=== PATIENT | female | born 1995 | race Caucasian/White ===

== ENCOUNTER 2017-09-03 18:29 | Inpatient (IN) | payer BC, MEDICAID ==
[~2017-09-03] VITALS: Ht 167.6 cm; Wt 114.1 kg
[2017-09-03] MEDS ORDERED: MAGNESIUM SULF. PMX 20GM/500ML 500 ML IV ONE (18:39)
[2017-09-03] MEDS ORDERED: LACTATED RINGERS 1,000 ML IV PRN (19:06)
[2017-09-03] MEDS ORDERED: PLEASE ENTER ALLERGIES MC SCH ×2 (19:30)
[2017-09-03] MEDS: PLEASE ENTER HEIGHT AND WEIGHT MC SCH (19:30)
[2017-09-03 19:33] LABS: HEMATOCRIT 35.5 % (34.6-47.8); HEMOGLOBIN 11.9 g/dL (11.7-16.4); WHITE BLOOD COUNT 15.4 x10^3/uL (3.4-10)
[2017-09-03 19:43] LABS: ASPARTATE AMINO TRANSFERASE 12 U/L (15-37); BLOOD UREA NITROGEN 22 mg/dL (7-18)
[2017-09-03 19:46] LABS: LACTATE DEHYDROGENASE 140 U/L (84-246)
[2017-09-03] MEDS ORDERED: ACETAMINOPHEN 325 MG TABLET ONE (21:37)
[2017-09-03] MEDS ORDERED: ACETAMINOPHEN 500 MG TABLET PO ONE (22:00)
[2017-09-03] MEDS ORDERED: METOCLOPRAMIDE 5 MG/ML, 2ML ONE (22:29)
[2017-09-03] MEDS ORDERED: SODIUM CITRATE/CITRIC ACID 30 ML UDC ONE (22:29)
[2017-09-03] MEDS ORDERED: NEWBORN KIT ONE (22:29)
[2017-09-03] MEDS ORDERED: OXYTOCIN 30U/ 0.9% NaCL 500ML 500 ML ONE (22:29)
[2017-09-04] MEDS: PLEASE ENTER HEIGHT AND WEIGHT MC SCH (03:30)
[2017-09-04] MEDS ORDERED: MAGNESIUM SULF. PMX 20GM/500ML 500 ML IV ONE ×2 (04:36→15:10)
[2017-09-04] MEDS: MAGNESIUM SULF. PMX 20GM/500ML 500 ML IV SCH ×2 (04:40→15:14)
[2017-09-04 05:04] LABS: HEMATOCRIT 33.6 % (34.6-47.8); HEMOGLOBIN 11.3 g/dL (11.7-16.4); WHITE BLOOD COUNT 15.2 x10^3/uL (3.4-10)
[2017-09-04 05:14] LABS: BLOOD UREA NITROGEN 18 mg/dL (7-18)
[2017-09-04 05:17] LABS: ASPARTATE AMINO TRANSFERASE 16 U/L (15-37)
[2017-09-04] MEDS: D5%-LACTATED RINGERS 1,000 ML IV SCH (07:30)
[2017-09-04] MEDS ORDERED: ACETAMINOPHEN 325 MG TABLET ONE ×2 (09:21)
[2017-09-04] MEDS: ACETAMINOPHEN 325 MG TABLET PO PRN (09:24)
[2017-09-04] MEDS ORDERED: OXYTOCIN 30U/ 0.9% NaCL 500ML 500 ML ONE (11:08)
[2017-09-04] MEDS ORDERED: NEWBORN KIT ONE (11:16)
[2017-09-04] MEDS ORDERED: ONDANSETRON 2MG/ML, 2ML ONE ×2 (11:25→12:38)
[2017-09-04] MEDS ORDERED: OXYTOCIN 10 UNITS/ML, 1ML ONE ×2 (11:25→12:38)
[2017-09-04] MEDS ORDERED: PHENYLEPHRINE 10 MG/ML ONE (11:25)
[2017-09-04] MEDS ORDERED: EPHEDRINE 50 MG/ML, 1ML ONE (11:25)
[2017-09-04] MEDS ORDERED: CEFAZOLIN 1,000 MG ONE ×3 (11:25→13:18)
[2017-09-04] MEDS ORDERED: KETOROLAC 30 MG/1 ML ONE (11:25)
[2017-09-04] MEDS ORDERED: DEXAMETHASONE 4 MG/ML, 1ML ONE ×2 (11:25→12:38)
[2017-09-04] MEDS ORDERED: FENTANYL PF 100 MCG/2ML ONE (11:25)
[2017-09-04] MEDS ORDERED: METOCLOPRAMIDE 5 MG/ML, 2ML IVPush ONE (11:30)
[2017-09-04] MEDS ORDERED: ONDANSETRON 2MG/ML, 2ML IVPush PRN (11:30)
[2017-09-04] MEDS ORDERED: EPHEDRINE 50 MG/ML, 1ML IVPush PRN (11:30)
[2017-09-04] MEDS ORDERED: MIDAZOLAM 1 MG/ML, 2ML IV PRN (11:30)
[2017-09-04] MEDS ORDERED: MEPERIDINE/PF 25MG/0.5ML IVPush PRN (11:30)
[2017-09-04] MEDS ORDERED: HYDROcodone/APAP 7.5-325MG/15ML UDC PO PRN (11:30)
[2017-09-04] MEDS ORDERED: HYDROmorphone 1 MG/ML, 1ML IV PRN (11:30)
[2017-09-04] MEDS ORDERED: OXYcodone 5 MG/5 ML ORAL.SOL UDC PO PRN (11:30)
[2017-09-04] MEDS ORDERED: hydrALAzine 20 MG/ML, 1ML IV PRN (11:30)
[2017-09-04] MEDS ORDERED: LABETALOL 5MG/ML, 20ML IV PRN (11:30)
[2017-09-04] MEDS ORDERED: PROMETHAZINE 25 MG/ML, 1ML IV PRN (11:30)
[2017-09-04] MEDS ORDERED: SODIUM CITRATE/CITRIC ACID 30 ML UDC PO ONE (11:30)
[2017-09-04] MEDS ORDERED: ALBUTEROL/IPRATROPIUM 2.5MG/0.5MG, 3 ML NPPB PRN (11:30)
[2017-09-04] MEDS ORDERED: FENTANYL PF 100 MCG/2ML IV PRN (11:30)
[2017-09-04] MEDS ORDERED: MAGNESIUM SULFATE PMX 2 GM/50 ML ONE (12:38)
[2017-09-04] MEDS ORDERED: METOCLOPRAMIDE 5 MG/ML, 2ML ONE (12:38)
[2017-09-04] MEDS ORDERED: SODIUM CITRATE/CITRIC ACID 30 ML UDC ONE (12:38)
[2017-09-04] MEDS ORDERED: MAGNESIUM SULF. PMX 20GM/500ML 500 ML IV PRN (13:56)
[2017-09-04] MEDS ORDERED: LACTATED RINGERS 1,000 ML IV PRN ×2 (13:56→19:06)
[2017-09-04] MEDS: LACTATED RINGERS 1,000 ML IV SCH ×4 (13:56→23:56)
[2017-09-04] MEDS ORDERED: SIMETHICONE 80 MG CHEW TAB PO PRN (14:00)
[2017-09-04] MEDS ORDERED: ONDANSETRON 2MG/ML, 2ML IV PRN (14:00)
[2017-09-04] MEDS ORDERED: MISOPROSTOL 200 MCG TABLET PR PRN (14:00)
[2017-09-04] MEDS ORDERED: BISACODYL 10 MG SUPP PR PRN (14:00)
[2017-09-04] MEDS ORDERED: ACETAMINOPHEN 325 MG TABLET PO PRN (14:00)
[2017-09-04] MEDS ORDERED: DIPH,PERTUSS(ACELL),TET VAC/PF NC IM-VACC PRN (14:00)
[2017-09-04] MEDS ORDERED: MEPERIDINE/PF 100 MG/ML ONE (14:41)
[2017-09-04] MEDS ORDERED: OXYcodone 5 MG/5 ML ORAL.SOL UDC ONE (15:10)
[2017-09-04] MEDS: OXYTOCIN 30U/ 0.9% NaCL 500ML 500 ML IV SCH ×2 (15:16→23:56)
[2017-09-04] MEDS ORDERED: HYDROmorphone 1 MG/ML, 1ML ONE (17:26)
[2017-09-04] MEDS ORDERED: OXYcodone/APAP 5/325MG TABLET ONE ×2 (18:09→23:32)
[2017-09-04] MEDS: OXYcodone/APAP 5/325MG TABLET PO PRN ×2 (18:14→23:34)
[2017-09-04 19:25] VITALS: BP 134/82
[2017-09-04] MEDS ORDERED: OXYcodone IR 5MG TABLET ONE (20:05)
[2017-09-04] MEDS: OXYcodone IR 5MG TABLET PO PRN (20:08)
[2017-09-05] MEDS ORDERED: OXYcodone IR 5MG TABLET ONE ×3 (00:18→11:22)
[2017-09-05] MEDS: OXYcodone IR 5MG TABLET PO PRN ×5 (00:21→20:06)
[2017-09-05] MEDS: MAGNESIUM SULF. PMX 20GM/500ML 500 ML IV SCH ×3 (01:06→11:06)
[2017-09-05] MEDS ORDERED: MAGNESIUM SULF. PMX 20GM/500ML 500 ML IV ONE (01:34)
[2017-09-05 02:19] LABS: HEMATOCRIT 29.7 % (34.6-47.8); HEMOGLOBIN 9.9 g/dL (11.7-16.4); WHITE BLOOD COUNT 15.9 x10^3/uL (3.4-10)
[2017-09-05 02:34] LABS: ASPARTATE AMINO TRANSFERASE 16 U/L (15-37); BLOOD UREA NITROGEN 14 mg/dL (7-18)
[2017-09-05] MEDS: D5%-LACTATED RINGERS 1,000 ML IV SCH (03:30)
[2017-09-05] MEDS: LACTATED RINGERS 1,000 ML IV SCH ×3 (05:56→13:56)
[2017-09-05] MEDS ORDERED: OXYcodone/APAP 5/325MG TABLET ONE (06:14)
[2017-09-05] MEDS: OXYcodone/APAP 5/325MG TABLET PO PRN (06:16)
[2017-09-05] MEDS ORDERED: OXYcodone 5 MG/5 ML ORAL.SOL UDC ONE (07:23)
[2017-09-05] MEDS: OXYTOCIN 30U/ 0.9% NaCL 500ML 500 ML IV SCH (09:56)
[2017-09-05 10:00] VITALS: BP 128/84
[2017-09-05] MEDS ORDERED: DOCUSATE 100 MG CAPSULE ONE (12:08)
[2017-09-05] MEDS ORDERED: PRENATAL VIT/IRON/FA 1 EACH TABLET ONE (12:08)
[2017-09-05] MEDS: DOCUSATE 100 MG CAPSULE PO PRN ×2 (12:09→20:06)
[2017-09-05] MEDS: PRENATAL VIT/IRON/FA 1 EACH TABLET PO SCH (12:10)
[2017-09-05] MEDS ORDERED: ACETAMINOPHEN 325 MG TABLET ONE (13:12)
[2017-09-05] MEDS: ACETAMINOPHEN 325 MG TABLET PO PRN ×3 (13:16→22:11)
[2017-09-05 15:44] VITALS: BP 142/92
[2017-09-05 19:15] VITALS: BP 150/98
[2017-09-06 00:11] VITALS: BP 142/86
[2017-09-06] MEDS: OXYcodone IR 5MG TABLET PO PRN ×5 (01:49→21:35)
[2017-09-06 04:15] VITALS: BP 142/94
[2017-09-06] MEDS: ACETAMINOPHEN 325 MG TABLET PO PRN ×3 (06:53→21:35)
[2017-09-06 07:18] VITALS: BP 150/94
[2017-09-06] MEDS: PRENATAL VIT/IRON/FA 1 EACH TABLET PO SCH (07:29)
[2017-09-06] MEDS: DOCUSATE 100 MG CAPSULE PO PRN ×2 (07:29→21:39)
[2017-09-06] MEDS ORDERED: niFEDipine ER 60 MG TABLET.ER PO SCH (16:30)
[2017-09-06 20:00] VITALS: BP 135/92
[2017-09-06] MEDS ORDERED: DIPHENHYDRAMINE 50 MG CAPSULE PO ONE (22:00)
[2017-09-07] VITALS (7 sets, daily range): BP systolic 129–151; BP diastolic 81–102
[2017-09-07] MEDS: OXYcodone IR 5MG TABLET PO PRN ×2 (03:00→09:10)
[2017-09-07] MEDS: PRENATAL VIT/IRON/FA 1 EACH TABLET PO SCH (07:20)
[2017-09-07] MEDS: LABETALOL 200 MG TABLET PO SCH ×2 (07:20→17:32)
[2017-09-07] MEDS: DOCUSATE 100 MG CAPSULE PO PRN ×2 (07:21→21:47)
[2017-09-07] MEDS: OXYcodone/APAP 5/325MG TABLET PO PRN ×2 (15:18→21:47)
[2017-09-07] MEDS ORDERED: HYDROCORTISONE CRM 1%, 30GM TP PRN (19:00)
[2017-09-07] MEDS ORDERED: BISACODYL 10 MG SUPP PR PRN (21:00)
[2017-09-07] MEDS ORDERED: OXYcodone IR 5MG TABLET PO PRN (21:00)
[2017-09-07] MEDS ORDERED: SIMETHICONE 80 MG CHEW TAB PO PRN (21:00)
[2017-09-07] MEDS ORDERED: ACETAMINOPHEN 325 MG TABLET PO PRN ×2 (21:00)
[2017-09-07] MEDS ORDERED: ONDANSETRON 2MG/ML, 2ML IV PRN (21:00)
[2017-09-08 00:20] VITALS: BP 133/88
[2017-09-08] MEDS: OXYcodone/APAP 5/325MG TABLET PO PRN ×6 (01:48→21:42)
[2017-09-08 05:00] VITALS: BP 145/89
[2017-09-08 08:00] VITALS: BP 151/105
[2017-09-08] MEDS: DOCUSATE 100 MG CAPSULE PO PRN ×2 (08:07→21:42)
[2017-09-08] MEDS: LABETALOL 200 MG TABLET PO SCH ×2 (08:07→17:50)
[2017-09-08] MEDS ORDERED: PRENATAL VIT/IRON/FA 1 EACH TABLET PO SCH (09:00)
[2017-09-08 12:50] VITALS: BP 141/105
[2017-09-08] MEDS ORDERED: OXYC-302 PO (17:28)
[2017-09-08] MEDS ORDERED: LABE200T3 PO (17:29)
[2017-09-08] MEDS ORDERED: hydrocortisone cream (17:30)
== END 2017-09-08 21:50 | disposition home or self-care (01) | DRG 765 ==
LOC: LDIP 18:29 → 2NW 09-05 14:23
PROVIDERS: ADMIT Obstetrics & Gynecology Maternal & Fetal Medicine; ATTEND Obstetrics & Gynecology Maternal & Fetal Medicine
PROC: 10D00Z1 Extraction of Products of Conception, Low, Open Approach (ICD-10-PCS; principal; 2017-09-04)
DX: O14.14 Severe pre-eclampsia complicating childbirth (principal); E74.21 Galactosemia; I10 Essential (primary) hypertension; O16.4 Unspecified maternal hypertension, complicating childbirth; K21.9 Gastro-esophageal reflux disease without esophagitis; O99.62 Diseases of the digestive system complicating childbirth; J45.909 Unspecified asthma, uncomplicated; O75.89 Other specified complications of labor and delivery; O99.52 Diseases of the respiratory system complicating childbirth; Z37.0 Single live birth; Z3A.34 34 weeks gestation of pregnancy; Z87.891 Personal history of nicotine dependence
CPT/HCPCS: 36415; 71010; 80053; 81001; 82248; 82570; 82803; 83615; 83735; 84156; 84550; 85025; 86850; 86900; 87081; 87086; 87147; 88305; 89060; J0690; J1100; J1170; J1885; J2175; J2405; J3010; J2370; J2590; J2765; J3475; J7120; Q0114